=== PATIENT | female | born 1985 | race Hispanic/Latino ===

== ENCOUNTER 2023-02-22 21:05 | Emergency (ER) | payer OTHER ==
[~2023-02-22] VITALS: Ht 160 cm; Wt 92.1 kg
[2023-02-22] MEDS ORDERED: 0.9%NACL 1000ML 1,000 ML IV ONE (22:30)
[2023-02-22 22:45] LABS: BASOPHILS % (AUTO) 0.5 % (0.0-5.0); EOSINOPHILS % (AUTO) 3.9 % (0.0-8.0); HEMATOCRIT 36.5 % (36-48); LYMPHOCYTES % (AUTO) 29.8 % (21.0-51.0); MEAN CORPUSCULAR HEMOGLOBIN 27.3 pg (27.0-33.0); MEAN CORPUSCULAR HGB CONC 33.2 g/dL (32.0-36.0); MEAN CORPUSCULAR VOLUME 82.2 fL (79-99); MONOCYTES % (AUTO) 6.8 % (3.0-13.0); NEUTROPHILS % (AUTO) 58.7 % (40.0-77.0); PLATELET COUNT (AUTO) 392 K/uL (130-400); RED BLOOD CELL COUNT(AUTO) 4.44 MIL/uL (4.00-5.50); WHITE BLOOD COUNT (AUTO) 9.1 K/uL (4.8-10.8)
[2023-02-22 23:00] LABS: CREATININE 0.7 mg/dL (0.5-1.5); POTASSIUM 3.7 mmol/L (3.5-5.1)
[2023-02-22 23:05] LABS: ALBUMIN 3.5 g/dL (3.5-5.0); TOTAL PROTEIN, SERUM 7.5 g/dL (6.0-8.3)
[2023-02-22] MEDS ORDERED: IOHEXOL-350 75 ML VIAL IV ONE (23:29)
[2023-02-22 23:50] VITALS: BP 120/84
[2023-02-23] MEDS ORDERED: METH4TAB3 PO (00:11)
[2023-02-23] MEDS ORDERED: CLIN-141 PO (00:11)
[2023-02-23] MEDS ORDERED: ACET-2079 PO (00:11)
[2023-02-23] MEDS ORDERED: IBUP-2070 PO (00:11)
[2023-02-23] MEDS ORDERED: CLINDAMYCIN 150 MG CAP PO ONE (00:30)
[2023-02-23] MEDS ORDERED: DEXAMETHASONE SOD PHOSPHATE 4 MG/ML 1ML VIAL IV ONE (00:30)
[2023-02-23] MEDS ORDERED: KETOROLAC 30MG VIAL (30MG/ML) IVP ONE (00:30)
== END 2023-02-23 00:22 | disposition home or self-care (01) ==
LOC: EDH 21:05
DX: L02.01 Cutaneous abscess of face (principal)
CPT/HCPCS: 99285; 70487; 96361; 80053; 84703; 85025; 36415; 96374; 96375; J7030; Q9967; J1100; J1885